=== PATIENT | male | born 1970 | race Hispanic/Latino ===

== ENCOUNTER → 2019-03-24 | Day surgery (SDC) | payer BC ==
[~2019-03-24] MED LIST: ALBUTEROL SULFATE HFA 8GM INHALATION AEROSOL INH ONE; BUPIVACAINE 0.25% 30ML SDV INJ ONE; BUPIVACAINE 0.5%/EPI 30 ML SDV INJ ONE; CEFAZOLIN SOD 1 GM/NS 50ML 50 ML IV ONE; CEFAZOLIN SOD 2 GM/D5W 50ML 50 ML IV ONE; DEXAMETHASONE SOD PHOS INJ 4 MG/ML VIAL ONE; FENTANYL CITRATE/PF 100MCG/2 ML INJ ONE; KETAMINE HCL INJ 50 MG/ML 10 ML VIAL ONE; KETOROLAC TROMETHAMINE 30 MG/ML VIAL ONE; LIDOCAINE 1% W/EPINEPHRINE 20 ML VIAL ONE; LIDOCAINE HCL 2% LOCAL INJ 5 ML SDV VIAL INJ ONE; MIDAZOLAM HCL 2 MG/2 ML VIAL ONE; ONDANSETRON HCL INJ 2MG/ML 2ML 2 MG/ML VIAL ONE; PROPOFOL IV EMULSION 10 MG/ML 20 ML VIAL ONE; ROCURONIUM BROMIDE 10 MG/ML 5ML VIAL ONE; SEVOFLURANE INHAL SOLN 250 ML PEN BTL ONE; SUCCINYLCHOLINE 200 MG/10 ML SYR ONE
--- NOTE | 2019-03-24 07:06 | NUR ---
SPIRITUAL CARE - Pre-Surgery Assessment: Pt in bed. Pt's at bedside. Pt reported supportive attention from family and friends. Intervention: I provided pastoral presence, hospitality, and sympathetic listening. I acquainted pt with availability of tire wrapper while hospitalized. Outcome: Pt expressed appreciation for visit. No need for follow up indicated at this time. [facility] Spiritual Care Department O: [phone] Pager: [phone] ([phone] number calling from)
[2019-03-24 09:40] VITALS: BP 148/84
--- NOTE | 2019-03-29 07:58 | NUR ---
DATE OF SURGERY: 03/24/19 PREOPERATIVE DIAGNOSES: Right Knee Medial Meniscus Tear POSTOPERATIVE DIAGNOSES: Right Knee Medial Complex and Lateral Peripheral Meniscus Tear, Impinging Medial Plica, Synovitis PROCEDURE: Right Knee Arthroscopic Partial Medial and Lateral Meniscectomy, Excision of Medial Plica, Extensive Debridement, Chondroplasty of Patella and Medial Femoral Condyle and Tibial Plateau, and Partial Synovectomy SURGEON: Isabel Morgan DO COMMISSION ASSOCIATE: None ANESTHESIA: General COMPLICATIONS: None TOURNIQUET: Applied but not inflated. No tourniquet EBL: Minimal INDICATIONS: Due to persistent pain and limitations on activity combined with findings on exam and imaging, the patient requests surgical treatment. Nonopera tive care and alternative surgical options were reviewed. We agreed that this provided the best risk/benefit profile for this patient, understanding and accepting risks of recurrent/persistent symptoms, infection, bleeding, stiffness, neurological/vascular damage, failure to improve and anesthetic complication (as reviewed by anesthesia service). Also, the patient understands that arthroscopic treatment of articular cartilage lesions provides temporary incomplete relief but that meniscal symptoms should be well addressed. 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 Sterile prepping and draping were performed. Antibiotics had been given and a time out performed. After an injection of 1% Lidocaine with Epinephrine in the proposed incision sites, The arthroscope was i nserted via a small lateral parapatellar tendon incision into the patellofemoral space. Under direct visualization, a medial parapatellar tendon portal was created providing a working portal. Diagnostic arthroscopy was performed and the above findings were noted. Within the medial compartment, a chondroplasty was performed on the medial femoral condyle and plateau to remove loose chondral tissue. After there was a stable chondral tissue remaiing, the medial meniscus was debrided to establish a well-balanced rim, removing approximately 70% of the posterior horn of the medial meniscus. A stable border was created. Within the intercondylar space, the ACL was visualized and intact The lateral compartment demonstrated fraying on the peripheral ends with some loose chondral tissue within the compartment. This was debrided with an arthros copic shaver to a stable border with 95% of the meniscus remaining. Chondroplasty was performed on the patella to provide a stable border. Next the impinging plica on the medial side was excised revealing a 6 mm grade 4 chondral defect from the abutment of the lesion. After hemostasis was obtained, the joint was extravasated and .25% marcaine was injected into the knee. The incisions were closed and more local was injected around the portal sites. Steristrips, Xeroform, 4x4s, ABDs and a compressive ALONZO bandage were applied. The patient was awakened and transferred to the PACU in satisfactory condition having tolerated the procedure well.
== END | disposition home or self-care (01) ==
LOC: OR 05:36
PROVIDERS: ATTEND Orthopaedic Surgery
DX: S83.231A Complex tear of medial meniscus, current injury, right knee, initial encounter (principal); S83.261A Peripheral tear of lateral meniscus, current injury, right knee, initial encounter; M67.51 Plica syndrome, right knee; M65.861 Other synovitis and tenosynovitis, right lower leg; M22.41 Chondromalacia patellae, right knee; R06.83 Snoring; G47.33 Obstructive sleep apnea (adult) (pediatric); K21.9 Gastro-esophageal reflux disease without esophagitis; E66.01 Morbid (severe) obesity due to excess calories; X58.XXXA Exposure to other specified factors, initial encounter; Z01.810 Encounter for preprocedural cardiovascular examination
CPT/HCPCS: 29880; 93005; J0690 ×2; J1100; J1885; J2001; J2250; J2405; J2704

== ENCOUNTER 2019-04-01 09:55 | Outpatient (RCR) | payer BC | END 2019-04-11 | LOC: PT 09:55 | PROVIDERS: ATTEND Orthopaedic Surgery | DX: S83.241A Other tear of medial meniscus, current injury, right knee, initial encounter (principal); M25.561 Pain in right knee ==